=== PATIENT | female | born 1965 | race Two or more races ===

== ENCOUNTER 2021-04-06 14:07 | Emergency (ER) | payer OTHER ==
[~2021-04-06] VITALS: Ht 160 cm; Wt 58.5 kg
[2021-04-06] MEDS ORDERED: NEURONTIN300 MG PO (14:11)
== END 2021-04-06 18:18 | disposition home or self-care (01) ==
LOC: ER 14:07
DX: R00.2 Palpitations (principal)

== ENCOUNTER 2024-09-18 11:00 | Emergency (ER) | payer OTHER ==
[~2024-09-18] VITALS: Ht 160 cm; Wt 59.9 kg
[~2024-09-18 11:00] MED LIST: NEURONTIN300 MG PO
[2024-09-18 12:34] VITALS: BP 151/80; O2SAT 99
[2024-09-18] MEDS ORDERED: KETOROLAC TROMETHAMINE 30 MG VIAL IV ONE (13:15)
[2024-09-18 14:10] LABS: BASO % 0.8 % (0.1-1.2); EOS # 0.04 (0.04-0.54); EOS % 1.0 % (0.7-7.0); LYMPH # 1.04 (1.18-3.74); LYMPH % 26.7 % (19.3-53.1); MEAN PLATELET VOLUME 11.40 fl (9.4-12.4); MONO # 0.26 (0.24-0.82); MONO % 6.7 % (4.7-12.5); NEUT # 2.51 (1.56-6.13); NEUT % 64.5 % (34.0-71.1); RED CELL DISTRIBUTION WIDTH 12.6 % (11.6-14.4)
[2024-09-18 14:25] LABS: URINE APPEARANCE Clear; URINE BILIRRUBIN Negative (NEGATIVE); URINE BLOOD Negative; URINE COLOR Yellow; URINE GLUCOSE Negative (NEGATIVE); URINE KETONE Negative (NEGATIVE); URINE LEUKOCYTE Negative; URINE NITRATE Negative; URINE PROTEIN Negative (NEGATIVE); URINE UROBILINOGEN 0.2 E.U./dl
[2024-09-18 14:26] LABS: INR 1.0
[2024-09-18 14:30] LABS: URINE BACTERIA 1253.9 uL (0.0-1933); URINE EPITHELIAL CELLS 17.0 uL (0.0-38.8); URINE WBC 7.3 uL (0.0-23.2)
[2024-09-18 14:33] LABS: BILIRUBIN TOTAL 0.32 mg/dL (0.3-1.2); BUN CREA RATIO 23.0 (7.0-25.0); CREATININE SERUM 0.69 mg/dL (0.55-1.02); GFR 86.78; GLOBULINA 2.9 G/DL (2.4-3.5); GLUCOSE FASTING 151.0 mg/dL (65-100); OSMOLALITY SERUM 295.0 MOSM/KG (275-295)
[2024-09-18 14:41] LABS: URINE CAST 0.14 uL (0.0-1.40); URINE RBC 1.3 uL (0.0-20.8)
[2024-09-18] MEDS ORDERED: METRONIDAZOLE500 MG PO (14:46)
[2024-09-18] MEDS ORDERED: PROBIOTIC1 EAC2 PO (14:46)
[2024-09-18] MEDS ORDERED: PEPCID AC20 MG PO (14:46)
[2024-09-18] MEDS ORDERED: LEVSIN/SL0.125 MG SL (14:46)
[2024-09-18] MEDS ORDERED: CIPRO500 MG PO (14:46)
[2024-09-18 15:33] LABS: ALT/SGPT 31.0 U/L (12-78); AST/SGOT 19.0 U/L (15-37)
== END 2024-09-18 16:05 | disposition home or self-care (01) ==
LOC: ER 11:10
PROVIDERS: General Practice
DX: R10.31 Right lower quadrant pain (principal); K57.30 Diverticulosis of large intestine without perforation or abscess without bleeding; I88.0 Nonspecific mesenteric lymphadenitis; Z88.8 Allergy status to other drugs, medicaments and biological substances; Z91.013 Allergy to seafood